=== PATIENT | male | born 1950 | race Caucasian/White ===

== ENCOUNTER 2016-11-30 20:55 | Emergency (ER) | payer MEDICARE, BC ==
[2016-11-30 21:24] LABS: Bilirubin Negative (Negative); Blood, Urine Negative (Negative); Clarity Clear (Clear); Glucose, Urine (Dipstick) 500 mg/dL (Negative); Leukocyte Negative (Negative); Nitrite Negative (Negative); Specific Gravity, Urine 1.015 (1.005-1.030); Urobilinogen 0.2 mg/dL (0.2-1.0); pH, Urine 5.5 (5.0-9.0)
[2016-11-30 21:25] LABS: Protein, Urine (Dipstick) Trace mg/dL (Neg-Trace)
[2016-11-30 22:03] LABS: #Basophils 0.2 thou/uL (0.0-0.2); #Eosinphils 0.1 thou/uL (0.0-0.7); #Lymphocytes 0.6 thou/uL (1.20-3.40); #Monocytes 0.4 thou/uL (0.11-0.59); %Basophils 1.1 % (0.0-1.0); %Eosinophils 0.6 % (0.0-10.0); %Lymphocytes 4.2 % (21.0-51.0); %Neutrophils 91.1 % (42.0-75.0); Differential Comment SCANNED; Hemoglobin 14.5 g/dL (14.0-18.0); Mean Corpuscular HGB CONC 33.9 g/dL (32.0-36.0); Mean Corpuscular Hemoglobin 30.7 pg (27.0-31.0); Mean Corpuscular Volume 90.8 fl (80.0-94.0); Mean Platelet Volume 7.2 fL (7.4-10.4); Platelet Count 274 thou/uL (130-400); RBC Distribution Width 12.6 % (11.5-14.5); Red Blood Cell (RBC) Count 4.71 mill/uL (4.70-6.10); White Blood Cell (WBC) Count 14.3 thou/uL (4.8-10.8)
[2016-11-30 22:10] LABS: ALT (SGPT) 24 U/L (8-55); AST (SGOT) 32 U/L (5-34); Albumin 4.2 g/dL (3.4-4.8); Alkaline Phosphatase 119 U/L (40-150); Anion Gap 22 mmol/L (10-20); BUN (Urea Nitrogen) 22 mg/dL (8.4-25.7); Bilirubin, Total 0.7 mg/dL (0.2-1.2); CK (CPK) 62 U/L (30-200); Calc. Creatinine Clearance 0 mL/min (70-130); Calcium 9.7 mg/dL (7.8-10.44); Carbon Dioxide 23 mmol/L (23-31); Chloride 92 mmol/L (98-107); Estimated GFR-MDRD 62; Globulin 4.3 g/dL (2.4-3.5); Glucose 449 mg/dL (80-115); Potassium 4.6 mmol/L (3.5-5.1); Protein, Total 8.5 g/dL (5.8-8.1); Sodium 132 mmol/L (136-145)
--- NOTE | 2016-11-30 22:10 | CT ---
CT OF BRAIN PERFORMED WITHOUT CONTRAST ENHANCEMENT: 11/30/16 HISTORY: Syncopal episode with possible head injury. COMPARISON: 08/31/16 study. There is mild generalized ventricular and sulcal prominence. There is decreased attenuation to the p eriventricular white matter consistent with some chronic ischemic white matter change. No signs of i ntracerebral hemorrhage or extra-axial fluid collections. Mastoid air cells and visualized sinuses a re clear. IMPRESSION: No acute intracranial abnormalities. POS: [facility]
[2016-11-30 22:12] LABS: CKMB 2.5 ng/mL (0-6.6); Troponin I 0.011 ng/mL (< 0.028)
--- NOTE | 2016-11-30 22:36 | CT ---
CT OF CERVICAL SPINE PERFORMED WITHOUT CONTRAST ENHANCEMENT: 11/30/16 HISTORY: Fall with neck pain. The vertebral bodies are normal in height. There is some degenerative osteophytes present. Facets sh ow degenerative change but are in normal alignment. There is some asymmetric left sided uncovertebra l hypertrophic changes at C3-4 causing left foraminal narrowing. No central canal stenosis. There is no CT evidence for fracture. IMPRESSION: No CT evidence of fracture of the cervical spine. POS: [facility]
--- NOTE | 2016-11-30 22:46 | RAD ---
PORTABLE CHEST: 11/30/16 COMPARISON: 02/20/15 study. HISTORY: Syncope. Fall. Heart size appears slightly enlarged. There is slight elevation of the right hemidiaphragm. The lung s are clear of infiltrates. There are no signs of failure. IMPRESSION: Mild cardiomegaly. POS: [facility]
[2016-11-30] MEDS ORDERED: Insulin Regular 300 UNITS/3 ML VIAL ONE (22:52)
[2016-11-30] MEDS ORDERED: Aspirin 325 MG TAB ONE (23:19)
[2016-11-30] MEDS ORDERED: Ondansetron ODT 4 MG TAB ONE (23:19)
== END 2016-12-01 00:10 | disposition short-term general hospital (02) ==
LOC: NAV ERS 20:55
DX: E11.65 Type 2 diabetes mellitus with hyperglycemia (principal); K21.9 Gastro-esophageal reflux disease without esophagitis; E78.5 Hyperlipidemia, unspecified; I10 Essential (primary) hypertension; F41.9 Anxiety disorder, unspecified; F25.1 Schizoaffective disorder, depressive type; Z87.442 Personal history of urinary calculi; W18.30XA Fall on same level, unspecified, initial encounter
CPT/HCPCS: 36416; 70450; 71010; 72125; 80053; 81003; 82553; 84484; 85025; 93005; 94760; 96374; J1815; Q0162

== ENCOUNTER 2017-06-29 11:15 | Emergency (ER) | payer MEDICARE, BC | END 2017-06-29 12:41 | disposition home or self-care (01) | LOC: NAV ERS 11:15 | DX: J06.9 Acute upper respiratory infection, unspecified (principal); E11.9 Type 2 diabetes mellitus without complications; K21.9 Gastro-esophageal reflux disease without esophagitis; E78.5 Hyperlipidemia, unspecified; I10 Essential (primary) hypertension; G20 Parkinson's disease; E66.9 Obesity, unspecified; F32.9 Major depressive disorder, single episode, unspecified; F25.9 Schizoaffective disorder, unspecified; F42.9 Obsessive-compulsive disorder, unspecified; F41.8 Other specified anxiety disorders; Z79.899 Other long term (current) drug therapy; Z79.4 Long term (current) use of insulin | CPT/HCPCS: 99283 ==

== ENCOUNTER 2019-01-02 04:17 | Emergency (ER) | payer MEDICARE, BC ==
--- NOTE | 2019-01-02 06:57 | CT ---
CERVICAL SPINE CT NONCONTRAST: Date: 01/02/19 COMPARISON: 12/21/18. CLINICAL INDICATION: Neck pain, related to fall, injury. FINDINGS: The cervical spinal alignment is maintained. There is mild multilevel degenerative change. No evidenc e of craniocervical distraction injury. Incidental note of a small right thyroid lobe hypodensity. IMPRESSION: 1. No acute cervical spine fracture. 2. Incidental note of right thyroid lobe hypodensity. Recommend dedicated follow-up with thyroid ult rasound to further characterize. POS: [facility]
== END 2019-01-02 06:52 ==
LOC: NAV ERS 04:17
DX: M54.2 Cervicalgia (principal); E04.1 Nontoxic single thyroid nodule; E11.9 Type 2 diabetes mellitus without complications; K21.9 Gastro-esophageal reflux disease without esophagitis; I10 Essential (primary) hypertension; G20 Parkinson's disease; E66.9 Obesity, unspecified; F41.9 Anxiety disorder, unspecified; F32.9 Major depressive disorder, single episode, unspecified; Z79.899 Other long term (current) drug therapy; Z87.442 Personal history of urinary calculi; Z79.4 Long term (current) use of insulin; W06.XXXA Fall from bed, initial encounter
CPT/HCPCS: 72125